=== PATIENT | female | born 1960 | race Caucasian/White ===

== ENCOUNTER 2017-11-12 17:31 | Emergency (ER) | payer OTHER ==
[2017-11-12 17:36] VITALS: TEMP 97.6; BMI 27.4
[2017-11-12] MEDS ORDERED: MECLIZINE HCL 25 MG TABLET (FP) PO ONE (17:50)
[2017-11-12] MEDS ORDERED: ONDANSETRON *ODT* 4 MG TABLET SL ONE (17:50)
[2017-11-12] MEDS ORDERED: ONDANSETRON *ODT* 4 MG TABLET ONE (17:52)
[2017-11-12] MEDS ORDERED: MECLIZINE HCL 25 MG TABLET (FP) ONE (18:20)
--- NOTE | 2017-11-12 18:25 | PDOC ---
History of Present Illness - History of Present Illness Initial Comments: 11/12/17 18:56 The patient is a 57 year old female, with no significant past medical history, who presents to the emergency department with sudden onset of dizziness at 3: 30PM today followed by nausea and vomiting. The patient states she ate a salad with chicken cutlet and a small pear around 11AM today. She states she was seated at her desk when she developed a sudden onset of room spinning. The patient states the dizziness mildly subsided, she drove to [place] to belt picker her daughter, and reports the dizziness returned when she got home. She states she also developed nausea and vomiting when she got home. Secondarily, the patient states she was recently seen by Dr. Lang who prescribed her drops for the right ear because the right ear is clogged and was advised by her doctor to follow-up with an ENT specialists. The patient reportedly completed the ear drop regimen, however, denies ENT follow-up. She denies any recent illnesses. She states she watches her grandchildren often and they had colds a couple of weeks ago. The patient denies experiencing her current symptoms in the past. She denies chest pain, shortness of breath, headache. She denies fever, chills, diarrhea and constipation. She denies dysuria, frequency, urgency and hematuria. Allergies: Penicillins Social history: Pt lives at home with son and daughter. Pt reports losing 4 very close family members within the past 6 months. <Gina Stein - Last Filed: 11/12/17 20:11> <Wolf Miller - Last Filed: 11/14/17 08:06> - General Chief Complaint: Lightheaded Stated Complaint: DIZZY Time Seen by Provider: 11/12/17 17:38 Past History <Gina Stein - Last Filed: 11/12/17 20:11> - Past Medical History COPD: No Other medical history: DENIES - Suicide/Smoking/Psychosocial Hx Smoking Status: No Smoking History: Never smoked Number of Cigarettes Smoked Daily: 0 Hx Alcohol Use: Yes Drug/Substance Use Hx: No Substance Use Type: Alcohol <Wolf Miller - Last Filed: 11/14/17 08:06> - Past Medical History Allergies/Adverse Reactions: Allergies Allergy/AdvReac Type Severity Reaction Status Date / Time Penicillins Allergy Mild Verified 11/12/17 17:32 Home Medications: Ambulatory Orders No Home Medications 0 dose .ROUTE UTDICT 03/08/13 Meclizine HCl [Antivert -] 25 mg PO TID PRN #20 tablet 11/12/17 Ondansetron [Zofran Odt -] 4 - 8 mg SL TID PRN #20 od.tablet 11/12/17 Review of Systems - Review of Systems Able to Perform ROS?: Yes Comments:: 11/12/17 18:56 CONSTITUTIONAL: (+) generalized body aches yesterday Absent: fever, chills, diaphoresis, malaise, loss of appetite HEENT: Absent: rhinorrhea, nasal congestion, throat pain, throat swelling, difficulty swallowing, mouth swelling, ear pain, eye pain, visual Changes CARDIOVASCULAR: Absent: chest pain, syncope, palpitations, irregular heart rate, lightheadedness , peripheral edema RESPIRATORY: Absent: cough, shortness of breath, dyspnea with exertion, orthopnea, wheezing, stridor, hemoptysis GASTROINTESTINAL: (+) nausea, vomiting, Absent: abdominal pain, abdominal distension, diarrhea, constipation, melena, hematochezia GENITOURINARY: Absent: dysuria, frequency, urgency, hesitancy, hematuria, flank pain, genital pain MUSCULOSKELETAL: Absent: myalgia, arthralgia, joint swelling SKIN: Absent: rash, itching, pallor HEMATOLOGIC/IMMUNOLOGIC: Absent: easy bleeding, easy bruising, lymphadenopathy, frequent infections ENDOCRINE: Absent: unexplained weight gain, unexplained weight loss, heat intolerance, cold intolerance NEUROLOGIC: (+) dizziness, Absent: headache, focal weakness or paresthesia, unsteady gait, seizure, mental status changes, bladder or bowel incontinence PSYCHIATRIC: Absent: anxiety, depression, suicidal or homicidal ideation, hallucinations <Gina Stein - Last Filed: 11/12/17 20:11> *Physical Exam - Vital Signs Last Vital Signs Temp Pulse Resp BP Pulse Ox 97.6 F 72 19 143/83 97 11/12/17 17:32 11/12/17 17:32 11/12/17 17:32 11/12/17 17:32 11/12/17 17:32 - Physical Exam Comments: 11/12/17 18:57 GENERAL: (+) in mid distress, vomiting on exam. Well developed, well nourished. Awake and alert. HEENT: (+) right ear occluded by cerumen. Right ear was irrigated and thick cerumen was extracted. Left ear unremarkable. Normocephalic, atraumatic. PERRLA, EOMI. No conjunctival pallor. Sclera are non-icteric. Moist mucous membranes. Oropharynx is clear. NECK: Supple. Full ROM. No JVD. Carotid pulses 2+ and symmetric, without bruits. No thyromegaly. No lymphadenopathy. CARDIOVASCULAR: Regular rate and rhythm. No murmurs, rubs, or gallops. Distal pulses are 2+ and symmetric. PULMONARY: No evidence of respiratory distress. Lungs clear to auscultation bilaterally. No wheezing, rales or rhonchi. ABDOMINAL: Soft. Non-tender. Non-distended. No rebound or guarding. No organomegaly. Normoactive bowel sounds. MUSCULOSKELETAL Normal range of motion at all joints. No bony deformities or tenderness. No CVA tenderness. EXTREMITIES: No cyanosis. No clubbing. No edema. No calf tenderness. SKIN: Warm and dry. Normal capillary refill. No rashes. No jaundice. NEUROLOGICAL: Alert, awake, appropriate. Cranial nerves 2-12 intact. No motor deficits in the upper extremities and lower extremities. Normoreflexic in the upper and lower extremities. Normal speech. Gait is normal without ataxia. PSYCHIATRIC: Cooperative. Good eye contact. Appropriate mood and affect. <Gina Stein - Last Filed: 11/12/17 20:11> - Vital Signs Last Vital Signs Temp Pulse Resp BP Pulse Ox 97.6 F 72 19 143/83 97 11/12/17 17:32 11/12/17 17:32 11/12/17 17:32 11/12/17 17:32 11/12/17 17:32 <Wolf Miller - Last Filed: 11/14/17 08:06> ED Treatment Course - Medications Given in the ED: ED Medications Discontinued Medications Generic Name Dose Route Start Last Admin Trade Name Freq PRN Reason Stop Dose Admin Meclizine HCl 25 mg 11/12/17 17:50 11/12/17 18:23 Antivert - PO 11/12/17 17:51 25 mg ONCE ONE Administration Ondansetron HCl 8 mg 11/12/17 17:50 11/12/17 17:55 Zofran Odt - SL 11/12/17 17:51 8 mg ONCE ONE Administration <Gina Stein - Last Filed: 11/12/17 20:11> - Medications Given in the ED: ED Medications Discontinued Medications Generic Name Dose Route Start Last Admin Trade Name Brianq PRN Reason Stop Dose Admin Ondansetron HCl 8 mg 11/12/17 17:50 11/12/17 17:55 Zofran Odt - SL 11/12/17 17:51 8 mg ONCE ONE Administration <Wolf Miller - Last Filed: 11/14/17 08:06> Medical Decision Making - Medical Decision Making 11/12/17 20:11 Patient's family member, Bandar, requests a call with the Influenza results ) <Gina Stein - Last Filed: 11/12/17 20:11> - Medical Decision Making Patient much improved after administration of medication. Vertigo and nausea is completely resolved. She is cheerful and in no distress. Awaiting results of influenza swab. Signed out to Dr. Acevedo 7 PM pending results of influenza swab. <Wolf Miller - Last Filed: 11/14/17 08:06> *DC/Admit/Observation/Transfer - Attestations Scribe Attestion: 11/12/17 18:59 Documentation prepared by Gina Stein, acting as medical housekeeper for Wolf Olivares MD <Gina Stein - Last Filed: 11/12/17 20:11> <Wolf Miller - Last Filed: 11/14/17 08:06> Diagnosis at time of Disposition: Vertigo - Discharge Dispostion Disposition: HOME Condition at time of disposition: Stable - Prescriptions Prescriptions: Meclizine HCl [Antivert -] 25 mg PO TID PRN #20 tablet PRN Reason: vertigo, nausea Ondansetron [Zofran Odt -] 4 - 8 mg SL TID PRN #20 od.tablet PRN Reason: Nausea And/Or Vomiting - Referrals Referrals: Erinn Ortiz MD [Primary Care Provider] - - Patient Instructions Additional Instructions: For the spinning sensation take meclizine 1 tablet as often as 3 times a day as needed. For nausea take Zofran 1 tablet as often as 3 times a day as needed. We will call you with the results of the flu test if it is positive we'll will send his prescription for the flu medication to your pharmacy and you'll need to get it filled and get it tonight and take the first dose tonight.. Return to the emergency department immediately with ANY new, persistent or worsening symptoms. Continue any medications as previously prescribed by your physician. You should follow up with your primary doctor as soon as possible regarding today's emergency department visit. . Please make sure your doctor reviews the results of your emergency evaluation. Thank you for coming to the Emergency Department today for your care. It was a pleasure to see you today. Please note that your evaluation is INCOMPLETE until you follow-up with your doctor. - Post Discharge Activity
--- NOTE | 2017-11-12 20:13 | PDOC ---
*Physical Exam - Vital Signs Last Vital Signs Temp Pulse Resp BP Pulse Ox 97.6 F 72 19 143/83 97 11/12/17 17:32 11/12/17 17:32 11/12/17 17:32 11/12/17 17:32 11/12/17 17:32 ED Treatment Course - Medications Given in the ED: ED Medications Discontinued Medications Generic Name Dose Route Start Last Admin Trade Name Brianq PRN Reason Stop Dose Admin Meclizine HCl 25 mg 11/12/17 17:50 11/12/17 18:23 Antivert - PO 11/12/17 17:51 25 mg ONCE ONE Administration Ondansetron HCl 8 mg 11/12/17 17:50 11/12/17 17:55 Zofran Odt - SL 11/12/17 17:51 8 mg ONCE ONE Administration Progress Note - Progress Note Progress Note: Care of this patient was transferred to [place] from Dr. Martinez at 1900 hrs. Patient came in with some vertigo and had a cerumen impaction in her ear post irrigation removal of the cerumen impaction patient's symptoms pretty much resolved. A influenza swab was sent and the results are still pending. 20:00 Patient does not want to wait any longer for the result of the influenza swab. Patient discharged home we got a phone number and will call her if it is positive 22:00 Incidental swab is negative for both influenza A and B. *DC/Admit/Observation/Transfer Diagnosis at time of Disposition: Vertigo - Discharge Dispostion Disposition: HOME Condition at time of disposition: Stable - Prescriptions Prescriptions: Meclizine HCl [Antivert -] 25 mg PO TID PRN #20 tablet PRN Reason: vertigo, nausea Ondansetron [Zofran Odt -] 4 - 8 mg SL TID PRN #20 od.tablet PRN Reason: Nausea And/Or Vomiting - Referrals Referrals: Erinn Ortiz MD [Primary Care Provider] - - Patient Instructions Additional Instructions: For the spinning sensation take meclizine 1 tablet as often as 3 times a day as needed. For nausea take Zofran 1 tablet as often as 3 times a day as needed. We will call you with the results of the flu test if it is positive we'll will send his prescription for the flu medication to your pharmacy and you'll need to get it filled and get it tonight and take the first dose tonight.. Return to the emergency department immediately with ANY new, persistent or worsening symptoms. Continue any medications as previously prescribed by your physician. You should follow up with your primary doctor as soon as possible regarding today's emergency department visit. . Please make sure your doctor reviews the results of your emergency evaluation. Thank you for coming to the Emergency Department today for your care. It was a pleasure to see you today. Please note that your evaluation is INCOMPLETE until you follow-up with your doctor. - Post Discharge Activity
[2017-11-12 20:15] VITALS: BP 113/65; PULSE 53
== END 2017-11-12 20:36 | disposition home or self-care (01) ==
LOC: FER 17:31
DX: R42 Dizziness and giddiness (principal)
CPT/HCPCS: 87804; 99282-25